=== PATIENT | male | born 1935 | race Caucasian/White ===

== ENCOUNTER 2018-01-02 19:17 | Emergency (ER) | payer OTHER ==
[~2018-01-02] VITALS: Ht 152.4 cm; Wt 64.0 kg
[~2018-01-02 19:17] MED LIST: ALBUAER19 INH; ASCO100061 PO; B-CO1TAB29 PO; CHOL100027 PO; GALA8TAB PO; NIAC100T18 PO; PRLSR20 PO; SIMV40TA4 PO; SYMIN160 INH
[2018-01-02 19:37] VITALS: Ht 152.4 cm; Wt 64.0 kg
[2018-01-02] MEDS ORDERED: LORAZEPAM 1 MG TAB SL STA ×2 (19:53→21:59)
[2018-01-02] MEDS ORDERED: KETOROLAC TROMETHAMINE 30 MG/ML VIAL IV STA (19:53)
[2018-01-02] MEDS ORDERED: LIDOCAINE/EPINEPH/TETRACAINE 1 EA SYR EXT STA (20:09)
[2018-01-02] MEDS ORDERED: RISP0.5T3 PO (20:26)
[2018-01-02] MEDS ORDERED: ATV/1 PO (20:26)
--- NOTE | 2018-01-02 21:05 | DIAGNOSTIC IMAGING REPORT ---
L HAND MIN 3 VIEWS ROUTINE CLINICAL HISTORY: 82 years-old Male presenting with L hand . TECHNIQUE: Frontal, oblique, and lateral views of the left hand were obtained. COMPARISON: None. FINDINGS: Extensive degenerative joint disease with osteophytosis, joint space loss, subchondral sclerosis, and subchondral cystic change evident at multiple sites including most prominently at the trapezium-first metacarpal articulation as well as the first metacarpophalangeal joint, interphalangeal joint of the first finger, and potentially to a more milder degree at several proximal and distal interphalangeal joints of the second through the fifth fingers. The radiocarpal articulation is preserved. No acute fracture or malalignment. IMPRESSION: Findings consistent with advanced osteoarthritis. No acute osseous injury. Electronically signed by: Manan Lindsay M.D. 01/02/2018 9:04 PM Dictated Date/Time: 01/02/2018 9:03 PM
--- NOTE | 2018-01-02 21:36 | DIAGNOSTIC IMAGING REPORT ---
HEAD WITHOUT CONTRAST (CT) CLINICAL HISTORY: 82 years-old Male presenting with fall hit head. TECHNIQUE: Multidetector CT imaging of the head was performed without the use of intravenous contrast. IV contrast: None. A dose lowering technique was used consistent with the principles of ALARA (as low as reasonably achievable). COMPARISON: 01/06/2013. CT DOSE (mGy.cm): The estimated cumulative dose is 1679.22 inclusive of the cervical spine. FINDINGS: Vegetable Buncher topogram: Unremarkable. Motion artifact grades image quality negatively affecting diagnostic sensitivity. Proportional ventricular and sulcal prominence, likely age-related parenchymal volume loss. Brain parenchyma normal in appearance with preserved rome-white differentiation. No mass effect or midline shift. No hemorrhage or acute territorial infarct. No extra-axial fluid collection. Chronic changes of the right maxillary sinus. Mucosal thickening and opacification of the right maxillary sinus and right frontal sinus. Calvarium intact. IMPRESSION: 1. Motion artifact grades image quality negatively affecting diagnostic sensitivity. Allowing for this, no acute intracranial abnormality. Electronically signed by: Manan Lindsay M.D. 01/02/2018 9:35 PM Dictated Date/Time: 01/02/2018 9:31 PM
--- NOTE | 2018-01-02 21:41 | DIAGNOSTIC IMAGING REPORT ---
CERVICAL SPINE W/O CLINICAL HISTORY: 82 years-old Male presenting with fall hit head. TECHNIQUE: Multidetector CT of the cervical spine was performed without the use of intravenous contrast. IV contrast: None. A dose lowering technique was used consistent with the principles of ALARA (as low as reasonably achievable). COMPARISON: 01/06/2013. CT DOSE (mGy.cm): The estimated cumulative dose is 1679.22 mGy.cm. FINDINGS: Cupola Tapper Helper topogram: Unremarkable. Slight reversal of normal cervical lordosis. No acute fracture or subluxation. Extensive multilevel degenerative changes. Vertebral body heights grossly maintained. Partial osseous fusion across C5-6. Disc osteophyte complexes noted to varying degrees at every level. Extensive facet arthropathy also evident. No significant posterior bony spurring. Disc osteophyte complexes/uncovertebral hypertrophy in combination with facet arthropathy results in osseous neural foraminal narrowing to varying degrees at multiple levels. Skull base intact. Motion related artifact in the lower cervical spine at the cervicothoracic junction of its evaluation in this region. Lung apices clear. Debris and gas mildly distend the esophagus. IMPRESSION: 1. No acute osseous injury of the cervical spine. 2. Multilevel degenerative changes. Electronically signed by: Manan Lindsay M.D. 01/02/2018 9:40 PM Dictated Date/Time: 01/02/2018 9:37 PM
[2018-01-02] MEDS ORDERED: LORAZEPAM 1 MG TAB ONE (22:00)
[2018-01-02] MEDS ORDERED: CEPHALEXIN MONOHYDRATE 250 MG CAP PO ONE (22:00)
[2018-01-02] MEDS ORDERED: HALOPERIDOL LACTATE 5 MG/ML 1 ML VIAL IM STA (22:44)
[2018-01-02] MEDS ORDERED: CEPH500C PO (23:41)
--- NOTE | 2018-01-02 23:46 | EMERGENCY ROOM VISIT NOTE ---
ED Visit Note Patient was seen and evaluated by Dr. Weller. I was asked to perform primary wound closure on the patient's left palm laceration. This measured 3 cm in length. It appeared to involve the tendon structures. Let gel was applied. The wound was cleansed and prepped in the typical sterile fashion utilizing normal saline and Betadine. The wound was sterilely draped. Once proper anesthetization was established, the wound was further examined and demonstrated deep involvement but no bone involvement. The wound was copiously irrigated with normal saline the edges prepped with Betadine. The wound was closed using 7 simple, 4-0 nylon sutures with the wound edges being well approximated. No deep sutures/subcutaneous sutures. Patient tolerated the procedure well. No complications were met. The wound was cleansed and dressed with a Xeroform bulky dressing which is to be changed daily and I instructed the family on how to do so. Please refer to further documentation regarding his visit.
[2018-01-02 23:49] VITALS: BP 101/51; PULSE 62; TEMP 36.9; O2SAT 97
--- NOTE | 2018-01-03 00:44 | EMERGENCY ROOM VISIT NOTE ---
History Report prepared by Sebastianibdane: Natacha Gamino Under the Supervision of: Dr. Keaton Weller D.O. First contact with patient: 19:51 Chief Complaint: FALL Stated Complaint: LACERATION ON PALM OF LEFT HAND Nursing Triage Summary: pt has alzhiemers and fell, cut left palm on radiator, bump on head above left eye, scrape on left knee per History of Present Illness The patient is a 82 year old male who presents to the Emergency Room with complaints of episode of a fall occurring just prior to arrival. Per , the patient's gait is "shuffled" at baseline. She reports when he was walking to the kitchen he tripped over a chair and fell forward to the ground. The patient hit his head but did not loose consciousness. The patient has a history of Alzheimer's. When the patient fell, he cut his left hand on the radiator. Per , the patient is mentally at his baseline. History limited secondary to the patient's dementia. Source of History: spouse/significant other History Limited By: dementia Onset: just prior to arrival Position: other (generalized) Quality: other (fall) Timing: other (episode) Associated Symptoms: No LOC Review of Systems ROS is limited secondary to the patient's dementia. Past Medical & Surgical Medical Problems: (1) Alzheimer disease Family History Patient reports no known family medical history. Social History Smoking Status: Never Smoker Alcohol Use: none Marital Status: Occupation Status: retired Current/Historical Medications Scheduled Cephalexin Monohydrate (Keflex), 500 MG PO QID Lorazepam (Ativan), 1 MG PO Q6H Risperidone (Risperdal), 0.5 MG PO QPM Allergies Coded Allergies: No Known Allergies (Unverified , 09/09/11) Physical Exam Vital Signs Date Time Temp Pulse Resp B/P (MAP) Pulse Ox O2 Delivery O2 Flow Rate FiO2 01/02/18 23:49 36.9 62 18 101/51 97 01/02/18 21:55 52 14 95/50 96 Room Air 01/02/18 20:11 54 14 97/44 96 Room Air 01/02/18 19:37 70 20 92 Room Air Physical Exam GENERAL: nonverbal, intermittently moaning, not following commands, no distress , non-toxic HEAD: normal cephalic, contusion to left side of forehead EYE EXAM: normal conjunctiva, PERRL and EOM's grossly intact OROPHARYNX: no exudate, no erythema, lips, buccal mucosa, and tongue normal and mucous membranes are dry NECK: supple, no nuchal rigidity, no adenopathy, non-tender CHEST: stable to compression anteriorly and posteriorly LUNGS: clear to auscultation. Normal chest wall mechanics HEART: no murmurs, S1 normal and S2 normal ABDOMEN: abdomen soft, non-tender, normo-active bowel sounds, no masses, no rebound or guarding. PELVIS: stable to compression anteriorly and posteriorly BACK: Back is symmetrical on inspection and there is no deformity, no midline tenderness, no CVA tenderness. UPPER EXTREMITIES: Laceration on mid-palmar aspect of left hand with complete laceration of fourth flexor tendon with partial involvement of fifth flexor tendon, 3 cm in length, good cap refill. full active and passive range of motion of all joints without tenderness to palpation. LOWER EXTREMITIES: full active and passive range of motion of all joints without tenderness to palpation NEURO EXAM: Awake, not following commands, intermittently moaning, moving all extremities, at baseline per family. Medical Decision & Procedures ER Provider Diagnostic Interpretation: Radiology results as stated below per my review and the radiologist's interpretation: CERVICAL SPINE W/O FINDINGS: Sales Assistant topogram: Unremarkable. Slight reversal of normal cervical lordosis. No acute fracture or subluxation. Extensive multilevel degenerative changes. Vertebral body heights grossly maintained. Partial osseous fusion across C5-6. Disc osteophyte complexes noted to varying degrees at every level. Extensive facet arthropathy also evident. No significant posterior bony spurring. Disc osteophyte complexes/uncovertebral hypertrophy in combination with facet arthropathy results in osseous neural foraminal narrowing to varying degrees at multiple levels. Skull base intact. Motion related artifact in the lower cervical spine at the cervicothoracic junction of its evaluation in this region. Lung apices clear. Debris and gas mildly distend the esophagus. IMPRESSION: 1. No acute osseous injury of the cervical spine. 2. Multilevel degenerative changes. Electronically signed by: Lisbet Valdovinos HAND MIN 3 VIEWS ROUTINE FINDINGS: Extensive degenerative joint disease with osteophytosis, joint space loss, subchondral sclerosis, and subchondral cystic change evident at multiple sites including most prominently at the trapezium-first metacarpal articulation as well as the first metacarpophalangeal joint, interphalangeal joint of the first finger, and potentially to a more milder degree at several proximal and distal interphalangeal joints of the second through the fifth fingers. The radiocarpal articulation is preserved. No acute fracture or malalignment. IMPRESSION: Findings consistent with advanced osteoarthritis. No acute osseous injury. Electronically signed by: Manan Lindsay M.D. HEAD WITHOUT CONTRAST (CT) FINDINGS: Sales Assistant topogram: Unremarkable. Motion artifact grades image quality negatively affecting diagnostic sensitivity. Proportional ventricular and sulcal prominence, likely age-related parenchymal volume loss. Brain parenchyma normal in appearance with preserved rome-white differentiation. No mass effect or midline shift. No hemorrhage or acute territorial infarct. No extra-axial fluid collection. Chronic changes of the right maxillary sinus. Mucosal thickening and opacification of the right maxillary sinus and right frontal sinus. Calvarium intact. IMPRESSION: 1. Motion artifact grades image quality negatively affecting diagnostic sensitivity. Allowing for this, no acute intracranial abnormality. Electronically signed by: Manan Lindsay M.D. Medications Administered Medications (Trade) Dose Ordered Sig/Jamal Route Start Time Stop Time Status Last Admin Dose Admin Tetracaine/ Epinephrine/ Lidocaine (L.e.t. Gel 4%/ 1:100/0.5%) 1 ea NOW STAT EXT 01/02/18 20:09 01/02/18 20:11 DC 01/02/18 20:15 1 EA Cephalexin Monohydrate (Keflex Cap) 500 mg NOW ONCE PO 01/02/18 22:00 01/02/18 22:01 DC 01/02/18 22:00 500 MG Lorazepam (Ativan Tab) 1 mg NOW STAT SL 01/02/18 21:59 01/02/18 22:00 DC 01/02/18 21:59 1 MG ED Course ED COURSE: Vital signs were reviewed and showed normal. The patients medical record was reviewed The above diagnostic studies were performed and reviewed. ED treatments and interventions as stated above. 2001: The patient was evaluated in room C7. A complete history and physical examination was performed. 1952: Ordered Toradol Inj 30 mg IV, Ativan Tab 1 mg SL. 2008: Ordered Tetracaine/epinephrine/lidocaine 1 ea EXT. 2152: I reviewed the patient's case with Dr. Escamilla-Orthopedics. He will follow up with the patient in his office. 2158: Ordered Ativan Tab 1 mg SL. 2200: Ordered Ativan tab 1 mg .ROUTE, Keflex cap 500 mg PO. 2243: Ordered Haldol Inj 5 mg IM. 2340: I updated the patient's family on the patient's test results. 2346: Upon reevaluation, the patient is resting.I discussed my findings with the patient's family and they understands and agrees with the treatment plan. Based on the patients age, coexisting illnesses, exam and lab findings the decision to treat as an outpatient was made. The patient remained stable while under my care. The patient appeared well at the time of discharge. Medical Decision Differential diagnoses include major intracranial, cervical, spinal, thoracic, abdominal, pelvic and neurologic injury. Fracture, contusion, sprain, strain, laceration, abrasions included as well. Patient is an 82-year-old male with dementia who moans at baseline who presents to ER for mechanical fall. Family is extremely attentive and aware of his wishes. They were agreeable to a CT head knowing that if they did find a believe there would be nothing that would do for. He did not want any blood work. They were agreeable for an x-ray of the hand. He had a tendon laceration. Wound was approximated by my PA after sedation with 2 doses of Ativan. Did discuss with orthopedics. They'll follow this patient up as an outpatient. Tenderness is up-to-date. Patient was given Keflex and discharged follow-up with orthopedics. Medication Reconcilliation Current Medication List: was personally reviewed by me Blood Pressure Screening Patient's blood pressure: Low blood pressure Consults Time Called: 2144 Consulting Physician: Dr. HoganOrthopedicmarguerite Returned Call: 2152 I reviewed the patient's case with Dr. Benítez. He will follow up with the patient in his office. Impression Primary Impression: Fall Additional Impressions: Tendon laceration Laceration of left hand Contusion of multiple sites Scribe Attestation The scribe's documentation has been prepared under my direction and personally reviewed by me in its entirety. I confirm that the note above accurately reflects all work, treatment, procedures, and medical decision making performed by me. Departure Information Dispostion Home / Self-Care Prescriptions Cephalexin Monohydrate (Keflex) 500 Mg Cap 500 MG PO QID, #30 CAP Prov: Keaton Weller, DO 3/1/18 Referrals Alfredo Madrigal M.D. (PCP) Forms HOME CARE DOCUMENTATION FORM, IMPORTANT VISIT INFORMATION Patient Instructions ED Laceration Tendon, [facility] Additional Instructions Please follow up with your primary care doctor with in the next 24 hours. Any worsening of your symptoms, please return to the ED immediately. This includes any fevers greater than 100.4, worsening pain, chest pain, shortness breath, persistent nausea, vomiting, unable to eat or drink, or any other concerning signs or symptoms from your standpoint. Please take antibiotics as prescribed. Please follow up with orthopedics within the next 24 hours. You should call them first thing in the morning to schedule appointment today. Please keep the wound clean dry and intact. Problem Qualifiers Primary Impression: Fall Encounter type: initial encounter Qualified Codes: W19.XXXA - Unspecified fall, initial encounter Additional Impressions: Laceration of left hand Encounter type: initial encounter Foreign body presence: unspecified Qualified Codes: S61.412A - Laceration without foreign body of left hand, initial encounter
== END 2018-01-03 00:02 | disposition home or self-care (01) ==
LOC: C.EDB 19:18 → C.EDC 01-03 00:02
DX: S61.412A Laceration without foreign body of left hand, initial encounter (principal); T14.8XXA Other injury of unspecified body region, initial encounter; W01.198A Fall on same level from slipping, tripping and stumbling with subsequent striking against other object, initial encounter; W26.8XXA Contact with other sharp object(s), not elsewhere classified, initial encounter; G30.9 Alzheimer's disease, unspecified; R03.1 Nonspecific low blood-pressure reading